=== PATIENT | male | born 1985 | race Caucasian/White ===

== ENCOUNTER 2018-05-27 09:41 | Emergency (ER) | payer BC, OTHER ==
[2018-05-27 10:09] VITALS: BP 146/108
--- NOTE | 2018-05-27 10:44 | UC ---
Truncal Trauma HPI - HPI Summary HPI Summary: Pt presents with c/o right side chest and rib pain after tripping while walking carrying a ladder last week. Pt states he heard a "pop" and had sudden right upper anterior and lateral chest pain. Denies sob, or difficulty breathing - History Of Current Complaint Chief Complaint: UCBackPain Stated Complaint: WC-RIGHT SIDE RIB PAIN Time Seen by Provider: 05/27/18 10:16 Hx Obtained From: Patient Onset/Duration: Sudden Onset, Lasting Days, Still Present Onset Of Pain: Post Accident Severity Initially: Mild Severity Currently: Moderate Pain Intensity: 4 Mechanism Of Injury: Fall From A Standing Position Aggravating Factor(s): Movement, Deep Breathing, Cough Alleviating factor(s): Rest Associated Signs And Symptoms: Positive: Negative - Allergies/Home Medications Allergies/Adverse Reactions: Allergies Allergy/AdvReac Type Severity Reaction Status Date / Time No Known Allergies Allergy Verified 05/27/18 10:09 Home Medications: Home Medications Loratadine 10 mg PO DAILY PRN 05/27/18 [History Confirmed 05/27/18] PMH/Surg Hx/FS Hx/Imm Hx Previously Healthy: Yes - Surgical History Surgical History: Yes Surgery Procedure, Year, and Place: appendectomy - Family History Known Family History: Positive: Cardiac Disease - Social History Occupation: Employed Full-time Lives: With Family Alcohol Use: Daily Substance Use Type: None Smoking Status (MU): Light Every Day Tobacco Smoker Amount Used/How Often: 5-6 cig/day Have You Smoked in the Last Year: Yes Household Exposure Type: Cigarettes Review of Systems All Other Systems Reviewed And Are Negative: Yes Constitutional: Positive: Negative Skin: Positive: Negative Eyes: Positive: Negative ENT: Positive: Negative Respiratory: Positive: Negative Cardiovascular: Positive: Chest Pain Gastrointestinal: Positive: Negative Genitourinary: Positive: Negative Motor: Positive: Decreased ROM - right side chest Neurovascular: Positive: Negative Musculoskeletal: Positive: Arthralgia, Myalgia Neurological: Positive: Negative Psychological: Positive: Negative Is Patient Immunocompromised?: No Physical Exam Triage Information Reviewed: Yes Appearance: Pain Distress Vital Signs: Initial Vital Signs Temp 97.6 F 05/27/18 10:02 Pulse 97 05/27/18 10:02 Resp 18 05/27/18 10:02 BP 146/108 05/27/18 10:02 Pulse Ox 100 05/27/18 10:02 Vital Signs Reviewed: Yes Eye Exam: Normal ENT Exam: Normal Dental Exam: Normal Neck exam: Normal Respiratory Exam: Normal Respiratory: Positive: Normal breath sounds Cardiovascular Exam: Normal Musculoskeletal Exam: Other Musculoskeletal: Positive: ROM Limited @ - pain with movement right side chest, Other: - right anterior pectoralis/chest pain, right lateral chest pain Neurological Exam: Normal Psychological Exam: Normal Skin Exam: Other - multiple tattoos Diagnostics - Radiology No standard instances Radiology Interpretation Completed By: Radiologist - IMPRESSION: NO DISPLACED RIB FRACTURE OR PNEUMOTHORAX. Truncal Trauma Course/Dx - Differential Dx/Diagnosis Differential Diagnosis/HQI/PQRI: Chest Wall Contusion, Rib Fracture Provider Diagnosis: Contusion of rib on right side, Chest pain in adult Discharge - Sign-Out/Discharge Documenting (check all that apply): Patient Departure All imaging exams completed and their final reports reviewed: Yes - Discharge Plan Condition: Stable Disposition: HOME Prescriptions: Cyclobenzaprine TAB* [Flexeril 10 MG TAB*] 10 mg PO Q8H PRN #15 tab PRN Reason: Pain Ibuprofen TAB* [Motrin TAB* 800 MG] 800 mg PO Q8H PRN #21 tab PRN Reason: Pain Patient Education Materials: Rib Contusion (ED) Referrals: Sara Metcalf NP [Primary Care Provider] - If Needed - Billing Disposition and Condition Condition: STABLE Disposition: Home - Attestation Statements Provider Attestation: I was available for consult. This patient was seen by the [facility]. The patient was not presented to, seen by, or examined by me. -Osiel
== END 2018-05-27 10:59 | disposition home or self-care (01) ==
LOC: UCCORT 09:41
DX: S20.211A Contusion of right front wall of thorax, initial encounter (principal); R07.89 Other chest pain; F17.210 Nicotine dependence, cigarettes, uncomplicated; W18.40XA Slipping, tripping and stumbling without falling, unspecified, initial encounter; Y93.01 Activity, walking, marching and hiking; Y92.9 Unspecified place or not applicable
CPT/HCPCS: 99202; G0463